=== PATIENT | female | born 1980 | race Caucasian/White ===

== ENCOUNTER → 2017-06-15 | Outpatient (CLI) | payer OTHER | LOC: COL.PUL 10:00 | DX: R06.02 Shortness of breath (principal) | CPT/HCPCS: J7674 ==

== ENCOUNTER 2017-11-15 20:06 | Emergency (ER) | payer OTHER ==
[~2017-11-15] VITALS: Ht 165.1 cm; Wt 177.3 kg
[2017-11-15 20:09] VITALS: TEMP 98.3
[2017-11-15] MEDS ORDERED: NEURONTIN100 MG/CAP PO (20:33)
[2017-11-15] MEDS ORDERED: NEXPLANON68 MG ID (20:33)
[2017-11-15] MEDS ORDERED: ROBAXIN 50500 MG/TAB PO (20:34)
[2017-11-15] MEDS ORDERED: SINGULAIR 110 MG/TAB PO (20:34)
[2017-11-15] MEDS ORDERED: PROAIR HFA0.09 MG/AC IH (20:34)
[2017-11-15] MEDS ORDERED: RT ADVAIR 228 DISKUS IH (20:34)
[2017-11-15] MEDS ORDERED: CLARITIN 1010 MG/TAB PO (20:35)
[2017-11-15] MEDS ORDERED: MASON NATURAL2000 IU (20:35)
[2017-11-15 20:54] LABS: BASO # 0.1 (0.0-0.2); BASO % 0.7 % (0.0-2.0); EOS # 0.3 (0.0-0.7); EOS % 2.9 % (0-4.0); GRAN # 5.6 (1.4-6.5); GRAN % 61.8 % (42.2-75.2); HEMATOCRIT 38.7 % (37.0-47.0); HEMOGLOBIN 12.7 g/dl (12.5-16.0); LYMPH # 2.6 (1.2-3.4); LYMPH % 29.2 % (20.0-51.0); MEAN CELL VOLUME 88 fl (80.0-100.0); MEAN CORPUSCULAR HEMOGLOBIN 29 pg (27.0-31.0); MEAN CORPUSCULAR HGB CONC 33 g/dl (33.0-37.0); MEAN PLATELET VOLUME 9.2 fl (7.4-10.4); MONO # 0.5 (0.1-0.6); MONO % 5.2 % (1.7-9.3); PLATELET COUNT 363 K/mm3 (130-400); REDCELL DISTRIBUTION WIDTH-CV 13.1 % (11.5-14.5)
[2017-11-15 20:59] LABS: ALBUMIN 4.4 gm/dL (3.5-5.0); BILIRUBIN,TOTAL 0.3 mg/dL (0.0-1.0); CALCIUM 9.4 mg/dL (8.4-10.2); CREATININE, serum 0.93 mg/dL (0.52-1.25); POTASSIUM 4.4 mmol/L (3.4-5.0); TOTAL PROTEIN 7.7 gm/dL (6.4-8.2)
[2017-11-15 21:49] VITALS: BP 121/79; PULSE 75
== END 2017-11-15 21:49 | disposition home or self-care (01) ==
LOC: COL.ER 20:06
PROVIDERS: Family Medicine
DX: I80.9 Phlebitis and thrombophlebitis of unspecified site (principal); Z79.51 Long term (current) use of inhaled steroids